=== PATIENT | female | born 1995 | race Two or more races ===

== ENCOUNTER 2018-08-02 12:37 | Outpatient (CLI) | payer OTHER ==
[~2018-08-02 12:37] MED LIST: FOLIC ACID1 MG PO; LAMICTAL100 MG; LAMICTAL150 MG PO; LEVSIN/SL0.125 MG SL; PEPCID40 MG PO; PRENATAL TABLE1 EACH PO
== END 2018-08-02 13:51 | disposition still patient (30) ==
LOC: OBS/DEL 12:37
DX: O99.352 Diseases of the nervous system complicating pregnancy, second trimester (principal); G40.802 Other epilepsy, not intractable, without status epilepticus; Z34.82 Encounter for supervision of other normal pregnancy, second trimester

== ENCOUNTER 2018-08-02 12:48 | Emergency (ER) | payer OTHER ==
[~2018-08-02] VITALS: Ht 157.5 cm; Wt 67.1 kg
== END 2018-08-02 23:07 | disposition home or self-care (01) ==
LOC: ER 12:48
DX: O26.892 Other specified pregnancy related conditions, second trimester (principal); G40.89 Other seizures; Z34.82 Encounter for supervision of other normal pregnancy, second trimester

== ENCOUNTER 2018-09-18 16:53 | Outpatient (CLI) | payer OTHER | END 2018-09-18 17:01 | disposition home or self-care (01) | LOC: LAB 16:53 | DX: Z34.81 Encounter for supervision of other normal pregnancy, first trimester (principal); G40.911 Epilepsy, unspecified, intractable, with status epilepticus ==

== ENCOUNTER 2018-11-02 15:15 | Inpatient (IN) | payer OTHER ==
[~2018-11-02] VITALS: Ht 160 cm; Wt 70.3 kg
== END 2018-11-06 15:10 | disposition home or self-care (01) | DRG 797 ==
LOC: OB/GYN 11-04 07:18 → LDR 11-04 07:18 → OB/GYN 11-04 09:53
PROVIDERS: ADMIT Obstetrics & Gynecology
PROC: 10E0XZZ Delivery of Products of Conception, External Approach (ICD-10-PCS; principal; 2018-11-04)
PROC: 0KQM0ZZ Repair Perineum Muscle, Open Approach (ICD-10-PCS; 2018-11-04)
PROC: 3E033VJ Introduction of Other Hormone into Peripheral Vein, Percutaneous Approach (ICD-10-PCS; 2018-11-04)
PROC: 4A1HXCZ Monitoring of Products of Conception, Cardiac Rate, External Approach (ICD-10-PCS; 2018-11-04)
PROC: 0UL70ZZ Occlusion of Bilateral Fallopian Tubes, Open Approach (ICD-10-PCS; 2018-11-06)
DX: O70.1 Second degree perineal laceration during delivery (principal); G40.802 Other epilepsy, not intractable, without status epilepticus; Z37.0 Single live birth; Z3A.38 38 weeks gestation of pregnancy; Z22.330 Carrier of Group B streptococcus; Z30.2 Encounter for sterilization